=== PATIENT | male | born 1980 | race Caucasian/White ===

== ENCOUNTER 2018-01-02 14:31 | Emergency (ER) | payer OTHER | END 2018-01-02 17:58 | disposition home or self-care (01) | LOC: M ED 14:31 | DX: S76.212A Strain of adductor muscle, fascia and tendon of left thigh, initial encounter (principal); X50.0XXA Overexertion from strenuous movement or load, initial encounter; Y92.89 Other specified places as the place of occurrence of the external cause; E10.9 Type 1 diabetes mellitus without complications; G40.909 Epilepsy, unspecified, not intractable, without status epilepticus; Z79.899 Other long term (current) drug therapy; Z79.4 Long term (current) use of insulin | CPT/HCPCS: 76870 ==

== ENCOUNTER 2018-03-03 19:22 | Emergency (ER) | payer SELFPAY | END 2018-03-03 19:53 | disposition home or self-care (01) | LOC: M ED 19:22 | DX: Z76.0 Encounter for issue of repeat prescription (principal); G40.909 Epilepsy, unspecified, not intractable, without status epilepticus; E11.9 Type 2 diabetes mellitus without complications; K21.9 Gastro-esophageal reflux disease without esophagitis; Z79.899 Other long term (current) drug therapy; Z79.4 Long term (current) use of insulin | CPT/HCPCS: 99283 ==

== ENCOUNTER → 2018-05-16 | Outpatient (CLI) | payer OTHER | LOC: M LRY 15:47 | DX: S89.82XA Other specified injuries of left lower leg, initial encounter (principal); M17.12 Unilateral primary osteoarthritis, left knee; X58.XXXA Exposure to other specified factors, initial encounter; Y92.9 Unspecified place or not applicable | CPT/HCPCS: 73564 ==

== ENCOUNTER → 2019-08-02 | Outpatient (REF) | payer BC ==
[~2019-08-02] MED LIST: AMIT25TA; AMIT25TA PO; IBUP-1114 PO; IBUP80TA PO; INSUN SC; INSUR SC; KEPP1TAB2 PO; LEVE750T5 PO
[2019-08-02 12:08] LABS: BASO % 0.7 % (0.0-1.0); EOS # 0.2 10^3/uL (0.0-0.5); EOS % 4.1 % (0.0-3.0); HEMATOCRIT 45.9 % (42.0-52.0); HEMOGLOBIN 15.7 g/dl (13.5-17.5); LYMPH % 34.8 % (24.0-44.0); MEAN CORPUSCULAR HEMOGLOBIN 31.2 pg (27.0-33.0); MEAN CORPUSCULAR HGB CONC 34.2 g/dl (32.0-36.5); MEAN CORPUSCULAR VOLUME 91.1 fl (80.0-96.0); MONO # 0.4 10^3/uL (0.0-0.8); MONO % 7.5 % (0.0-5.0); NEUTROPHILS % 52.7 % (36.0-66.0); PLATELET COUNT, AUTOMATED 268 10^3/uL (150-450); RED BLOOD COUNT 5.04 10^6/uL (4.30-6.10); WHITE BLOOD COUNT 5.6 10^3/uL (4.0-10.0)
[2019-08-02 12:26] LABS: ALBUMIN 3.8 GM/DL (3.2-5.2); ALT/SGPT 25 U/L (12-78); BILIRUBIN,TOTAL 0.4 MG/DL (0.2-1.0); BLOOD UREA NITROGEN 26 MG/DL (7-18); CALCIUM LEVEL 9.1 MG/DL (8.5-10.1); CARBON DIOXIDE LEVEL 32 MEQ/L (21-32); CHLORIDE LEVEL 103 MEQ/L (98-107); CHOLESTEROL LEVEL 226 MG/DL (<200); CREATININE FOR GFR 1.13 MG/DL (0.70-1.30); FREE T4 0.93 NG/DL (0.76-1.46); GLOMERULAR FILTRATION RATE > 60.0 (>60); GLUCOSE, FASTING 210 MG/DL (70-100); HDL CHOLESTEROL 79 MG/DL (>40); LDL CHOLESTEROL 128 MG/DL (<100); NON-HDL-C 147 MG/DL; POTASSIUM SERUM 4.5 MEQ/L (3.5-5.1); SODIUM LEVEL 140 MEQ/L (136-145); TOTAL 25(OH) VITAMIN D 21.3 NG/ML (30.0-100.0); TOTAL PROTEIN 6.8 GM/DL (6.4-8.2); TRIGLYCERIDES LEVEL 95 MG/DL (<150)
[2019-08-02 12:30] LABS: HEMOGLOBIN A1c 11.3 %
[2019-08-04 00:10] LABS: Lyme Disease IgG/IgM Antibodie <0.91 ISR (0.00-0.90); Lyme Disease IgM Ab Quantitati <0.80 index (0.00-0.79)
== END ==
LOC: M LAB REF 11:30
PROVIDERS: ATTEND Family Medicine
DX: Z13.228 Encounter for screening for other metabolic disorders (principal); E10.9 Type 1 diabetes mellitus without complications

== ENCOUNTER 2019-11-28 12:36 | Emergency (ER) | payer BC, OTHER, SELFPAY ==
[~2019-11-28] VITALS: Ht 177.8 cm; Wt 86.6 kg
[2019-11-28 13:08] LABS: BASO % 0.4 % (0.0-1.0); EOS # 0.1 10^3/uL (0.0-0.5); EOS % 0.7 % (0.0-3.0); HEMATOCRIT 44.9 % (42.0-52.0); HEMOGLOBIN 15.9 g/dl (13.5-17.5); LYMPH # 1.2 10^3/uL (1.5-5.0); LYMPH % 13.6 % (24.0-44.0); MEAN CORPUSCULAR HEMOGLOBIN 31.2 pg (27.0-33.0); MEAN CORPUSCULAR HGB CONC 35.4 g/dl (32.0-36.5); MEAN CORPUSCULAR VOLUME 88.2 fl (80.0-96.0); MONO # 0.5 10^3/uL (0.0-0.8); NEUTROPHILS # 7.2 10^3/uL (1.5-8.5); NEUTROPHILS % 79.9 % (36.0-66.0); PLATELET COUNT, AUTOMATED 276 10^3/uL (150-450); RED BLOOD COUNT 5.09 10^6/uL (4.30-6.10)
[2019-11-28] MEDS ORDERED: KETOROLAC 30 MG/ML VIAL (J1885) IV ONE (13:45)
[2019-11-28 13:46] LABS: BLOOD UREA NITROGEN 33 MG/DL (7-18); CALCIUM LEVEL 8.8 MG/DL (8.5-10.1); CARBON DIOXIDE LEVEL 22 MEQ/L (21-32); CHLORIDE LEVEL 101 MEQ/L (98-107); CK-MB VALUE MASS 2.8 NG/ML (<3.6); CPK CREATINE PHOSPHOKINASE 101 U/L (39-308); CREATININE FOR GFR 1.38 MG/DL (0.70-1.30); GLOMERULAR FILTRATION RATE > 60.0 (>60); GLUCOSE, FASTING 411 MG/DL (70-100); MB/CK RELATIVE INDEX 2.77 (< OR =4); POTASSIUM SERUM 4.6 MEQ/L (3.5-5.1); SODIUM LEVEL 133 MEQ/L (136-145); TROPONIN I < 0.02 NG/ML (< 0.10)
[2019-11-28] MEDS ORDERED: INSULANT SC (13:53)
--- NOTE | 2019-11-28 13:56 | REP ---
Clinical: Chest pain . Comparison: None . Findings: The mediastinum and cardiac silhouette are stable and within normal limits for portable technique. The lung gerber are clear without acute consolidation, effusion, or pneumothorax. Skeletal structures are intact. Impression: No acute cardiopulmonary process appreciated. Electronically Signed by Gonzalez Burnette MD 11/28/2019 01:49 P
[2019-11-28] MEDS ORDERED: HumaLOG INSULIN (NovoLOG) PER UNIT SC STA (14:25)
[2019-11-28 14:26] LABS: INFLUENZA A AMPLIFICATION NEGATIVE (NEGATIVE); INFLUENZA B AMPLIFICATION NEGATIVE (NEGATIVE)
[2019-11-28] MEDS ORDERED: ISOVUE-370 76% 100ML VIAL (Q9967) As Ordered ONE (14:36)
[2019-11-28 14:58] LABS: ALBUMIN 4.1 GM/DL (3.2-5.2); ALT/SGPT 28 U/L (12-78); BILIRUBIN,DIRECT 0.2 MG/DL (0.0-0.2); BILIRUBIN,TOTAL 0.8 MG/DL (0.2-1.0); LIPASE 69 U/L (73-393); TOTAL PROTEIN 6.7 GM/DL (6.4-8.2)
[2019-11-28] MEDS ORDERED: NS 1,000 ML IV ONE (15:00)
--- NOTE | 2019-11-28 15:13 | REP ---
Clinical: Chest pain . Technique: Axial contrast enhanced images from the thoracic inlet to the upper abdomen using 100 ml Isovue 370 intravenous contrast material with multiplanar re-formations. Findings: Satisfactory enhancement of the pulmonary vasculature is achieved and no filling defects are identified to suggest pulmonary embolus. Further evaluation of the mediastinum demonstrates normal thoracic aorta, heart and pericardium. The bilateral lung gerber are well aerated and clear without consolidation pleural effusion or pneumothorax. Tracheobronchial tree is patent. No nodule or mass lesion is identified. No adenopathy noted. Surrounding musculoskeletal structures intact a benign hemangioma identified in the lower thoracic vertebral bodies. Impression: No evidence for pulmonary embolus. No acute mediastinal or pleural parenchymal process. Electronically Signed by Gonzalez Burnette MD 11/28/2019 03:03 P
--- NOTE | 2019-11-28 15:16 | REP ---
Clinical: Right upper quadrant pain. Technique: Axial contrast enhanced images from the lung bases to the pubic symphysis with coronal and sagittal re-formations using 100 ml Isovue 370 intravenous contrast material. Comparison: None. Findings: Liver demonstrates multiple cavernous hemangiomas including a 7.5 cm hemangioma extending from the inferior aspect of the right hepatic lobe. Spleen, pancreas, gallbladder, bilateral adrenal glands and kidneys are normal. The enteric system is without obstruction or acute inflammatory process. Pelvis demonstrates distended bladder and age appropriate prostate/seminal vesicles. No ascites. No free air. No adenopathy. Lung bases are clear. Osseous structures are intact. Impression: 1. Multiple cavernous hemangiomas including 7.5 cm hemangioma extending from the inferior aspect of the right hepatic lobe. 2. No further acute abdominopelvic pathology appreciated. Electronically Signed by Gonzalez Burnette MD 11/28/2019 03:07 P
[2019-11-28] MEDS ORDERED: METOCLOPRAMIDE INJ 10MG/2ML VIAL (J2765) IV ONE (16:15)
[2019-11-28 17:17] LABS: CK-MB VALUE MASS 2.5 NG/ML (<3.6); CPK CREATINE PHOSPHOKINASE 81 U/L (39-308); MB/CK RELATIVE INDEX 3.09 (< OR =4); TROPONIN I < 0.02 NG/ML (< 0.10)
[2019-11-28] MEDS ORDERED: REGL5TAB2 PO (18:01)
[2019-11-28] MEDS ORDERED: KETO10TAB PO (18:01)
[2019-11-28] MEDS ORDERED: PERC5TAB12 PO (18:09)
[2019-11-28 18:21] VITALS: BP 116/59
--- NOTE | 2019-11-28 20:29 | ECGEPIP ---
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
--- NOTE | 2019-11-28 20:33 | ECGEPIP ---
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
--- NOTE | 2019-11-29 11:19 | ED PDOC ---
Post-Departure Follow-Up radiology report faxed to Loree Wilson MD Nov 29, 2019 11:19
== END 2019-11-28 18:28 | disposition home or self-care (01) ==
LOC: EDBD 12:36 → M ED 12:36
DX: R07.89 Other chest pain (principal); R06.02 Shortness of breath; E10.42 Type 1 diabetes mellitus with diabetic polyneuropathy; Z79.899 Other long term (current) drug therapy; Z79.4 Long term (current) use of insulin
CPT/HCPCS: 71045; 71275; 74177; 80048; 80076; 80180; 82550; 82553; 83690; 84484; 85025; 87502; 93005; 93041; 94760; 96374; 96375; 99285; J1885; J2765; Q9967

== ENCOUNTER 2019-12-11 18:25 | Emergency (ER) | payer BC ==
[~2019-12-11 18:25] MED LIST changes: +INSULANT SC; +KETO10TAB PO; +PERC5TAB12 PO; +REGL5TAB2 PO
[2019-12-11] MEDS ORDERED: TOUJ1.2I SC (19:06)
--- NOTE | 2019-12-11 19:12 | REP ---
Portable chest x-ray: Single view. History: Chest pain. Comparison chest x-ray November 28, 2019. Findings: The lungs are symmetrically aerated and no infiltrate is seen. Pleural angles are sharp. Cardiomediastinal silhouette is unremarkable. No bony abnormalities appreciated. Impression: No active disease. Electronically Signed by Ernst Amaya MD 12/11/2019 07:04 P
[2019-12-11 19:30] LABS: HEMATOCRIT 43.3 % (42.0-52.0); HEMOGLOBIN 14.8 g/dl (13.5-17.5); MEAN CORPUSCULAR HEMOGLOBIN 30.4 pg (27.0-33.0); MEAN CORPUSCULAR HGB CONC 34.2 g/dl (32.0-36.5); MEAN CORPUSCULAR VOLUME 88.9 fl (80.0-96.0); PLATELET COUNT, AUTOMATED 216 10^3/uL (150-450); RED BLOOD COUNT 4.87 10^6/uL (4.30-6.10); WHITE BLOOD COUNT 6.5 10^3/uL (4.0-10.0)
[2019-12-11] MEDS ORDERED: METOCLOPRAMIDE INJ 10MG/2ML VIAL (J2765) IV ONE (19:30)
[2019-12-11] MEDS ORDERED: NS 1,000 ML IV ONE (19:30)
[2019-12-11 20:01] LABS: BASOPHILS 1 % (0-1); LYMPHOCYTES 6 % (16-44); MONOCYTES 7 % (0-5); NEUTROPHILS 66 % (28-66)
[2019-12-11 20:02] LABS: PLATELET ESTIMATE NORMAL (NORMAL)
[2019-12-11 20:09] LABS: ALBUMIN 3.2 GM/DL (3.2-5.2); ALT/SGPT 27 U/L (12-78); AMYLASE 32 U/L (25-115); BILIRUBIN,DIRECT 0.2 MG/DL (0.0-0.2); BILIRUBIN,TOTAL 0.7 MG/DL (0.2-1.0); BLOOD UREA NITROGEN 26 MG/DL (7-18); CALCIUM LEVEL 8.4 MG/DL (8.5-10.1); CARBON DIOXIDE LEVEL 24 MEQ/L (21-32); CHLORIDE LEVEL 104 MEQ/L (98-107); CK-MB VALUE MASS 1.2 NG/ML (<3.6); CPK CREATINE PHOSPHOKINASE 73 U/L (39-308); FREE T4 1.07 NG/DL (0.76-1.46); GLOMERULAR FILTRATION RATE > 60.0 (>60); GLUCOSE, FASTING 218 MG/DL (70-100); LIPASE 58 U/L (73-393); MB/CK RELATIVE INDEX 1.64 (< OR =4); POTASSIUM SERUM 3.6 MEQ/L (3.5-5.1); SODIUM LEVEL 138 MEQ/L (136-145); THYROID STIMULATING HORMONE 0.381 uIU/ML (0.358-3.740); TOTAL PROTEIN 5.9 GM/DL (6.4-8.2); TROPONIN I < 0.02 NG/ML (< 0.10)
[2019-12-11] MEDS ORDERED: MORPHINE 4 MG/ML 1ML VIAL/SYRINGE (J2270) IV ONE (20:15)
--- NOTE | 2019-12-11 21:23 | ECGEPIP ---
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
--- NOTE | 2019-12-11 22:05 | REPVR ---
PROCEDURE INFORMATION: Exam: US Abdomen Limited, Right Upper Quadrant Exam date and time: 12/11/2019 9:37 PM Age: 39 years old Clinical indication: Abdominal tenderness and vomiting; Additional info: Biliary/gb eval TECHNIQUE: Imaging protocol: Real-time ultrasound of the abdomen with image documentation. Examination was focused on the right upper quadrant. COMPARISON: CT ABD/PEL W/IV CONTRAST ONLY 11/28/2019 2:43 PM FINDINGS: Liver: Normal. No masses. Gallbladder: Normal. No gallstones. There is no gallbladder wall thickening. Common bile duct: The common bile duct measures 4.1 mm. No mass or choledocholithiasis. Pancreas: Pancreatic tail not visualized due to overlying bowel gas. Pancreas otherwise unremarkable. Right kidney: Right kidney measures 10.9 x 5.3 x 5.1 cm. IMPRESSION: No acute findings. Electronically signed by: Radames Moreira On 12/11/2019 22:04:35 PM
[2019-12-11] MEDS ORDERED: REGL10TA6 PO (22:42)
[2019-12-11 22:48] VITALS: BP 125/70
== END 2019-12-11 23:08 | disposition home or self-care (01) ==
LOC: M ED 18:25
DX: K52.9 Noninfective gastroenteritis and colitis, unspecified (principal); E11.9 Type 2 diabetes mellitus without complications; G62.9 Polyneuropathy, unspecified; G40.909 Epilepsy, unspecified, not intractable, without status epilepticus; Z79.899 Other long term (current) drug therapy; Z79.4 Long term (current) use of insulin
CPT/HCPCS: 71045; 76705; 80048; 80076; 82010; 82150; 82550; 82553; 83690; 84439; 84443; 84484; 85025; 93005; 93041; 94760; 96361; 96374; 96375; 99285; J2270; J2765

== ENCOUNTER → 2020-02-08 | Outpatient (CLI) | payer BC ==
[~2020-02-08] MED LIST changes: +REGL10TA6 PO; +TOUJ1.2I SC
[2020-02-08 18:21] LABS: BASO # 0.1 10^3/uL (0.0-0.2); BASO % 0.7 % (0.0-1.0); EOS # 0.1 10^3/uL (0.0-0.5); HEMATOCRIT 40.3 % (42.0-52.0); HEMOGLOBIN 14.1 g/dl (13.5-17.5); LYMPH # 1.6 10^3/uL (1.5-5.0); LYMPH % 22.4 % (24.0-44.0); MEAN CORPUSCULAR HEMOGLOBIN 31.6 pg (27.0-33.0); MEAN CORPUSCULAR VOLUME 90.4 fl (80.0-96.0); MONO # 0.7 10^3/uL (0.0-0.8); NEUTROPHILS # 4.6 10^3/uL (1.5-8.5); NEUTROPHILS % 64.6 % (36.0-66.0); PLATELET COUNT, AUTOMATED 268 10^3/uL (150-450); RED BLOOD COUNT 4.46 10^6/uL (4.30-6.10); WHITE BLOOD COUNT 7.1 10^3/uL (4.0-10.0)
[2020-02-08 18:33] LABS: ALBUMIN 3.7 GM/DL (3.2-5.2); ALT/SGPT 44 U/L (12-78); BILIRUBIN,TOTAL 0.5 MG/DL (0.2-1.0); BLOOD UREA NITROGEN 26 MG/DL (7-18); CALCIUM LEVEL 8.7 MG/DL (8.5-10.1); CARBON DIOXIDE LEVEL 26 MEQ/L (21-32); CHLORIDE LEVEL 104 MEQ/L (98-107); CHOLESTEROL LEVEL 188 MG/DL (<200); CREATININE FOR GFR 1.16 MG/DL (0.70-1.30); GLOMERULAR FILTRATION RATE > 60.0 (>60); GLUCOSE, FASTING 217 MG/DL (70-100); HDL CHOLESTEROL 74 MG/DL (>40); LDL CHOLESTEROL 99 MG/DL (<100); NON-HDL-C 114 MG/DL; SODIUM LEVEL 138 MEQ/L (136-145); THYROID STIMULATING HORMONE 0.615 uIU/ML (0.358-3.740); TOTAL PROTEIN 6.6 GM/DL (6.4-8.2); TRIGLYCERIDES LEVEL 74 MG/DL (<150)
[2020-02-08 18:39] LABS: HEMOGLOBIN A1c 10.6 %
== END ==
LOC: M LRY 15:13
PROVIDERS: ATTEND Family Medicine
DX: E10.9 Type 1 diabetes mellitus without complications (principal)

== ENCOUNTER → 2020-09-17 | Outpatient (CLI) | payer OTHER, SELFPAY ==
[~2020-09-17] MED LIST changes: -AMIT25TA; -AMIT25TA PO; +AMIT25TA17; +AMIT25TA17 PO
== END ==
LOC: M LABSMTC 13:10
PROVIDERS: ATTEND Family Medicine
DX: Z11.59 Encounter for screening for other viral diseases (principal)

== ENCOUNTER 2020-09-24 21:20 | Emergency (ER) | payer SELFPAY ==
[~2020-09-24] VITALS: Ht 180.3 cm; Wt 93.6 kg
[~2020-09-24 21:20] MED LIST changes: +AMIT25TA; +AMIT25TA PO; -AMIT25TA17; -AMIT25TA17 PO
[2020-09-24] MEDS ORDERED: NS 1,000 ML IV ONE (22:00)
[2020-09-24] MEDS: GASTROGRAFIN SOLUTION 30ML PO SCH ×2 (22:38→23:30)
[2020-09-24 22:41] LABS: BASO # 0.1 10^3/uL (0.0-0.2); BASO % 0.9 % (0.0-1.0); EOS # 0.3 10^3/uL (0.0-0.5); EOS % 3.7 % (0.0-3.0); HEMATOCRIT 41.4 % (42.0-52.0); HEMOGLOBIN 14.2 g/dl (13.5-17.5); LYMPH # 2.6 10^3/uL (1.5-5.0); LYMPH % 33.2 % (24.0-44.0); MEAN CORPUSCULAR HEMOGLOBIN 30.9 pg (27.0-33.0); MEAN CORPUSCULAR HGB CONC 34.3 g/dl (32.0-36.5); MONO # 0.6 10^3/uL (0.0-0.8); MONO % 8.1 % (0.0-5.0); NEUTROPHILS # 4.2 10^3/uL (1.5-8.5); NEUTROPHILS % 53.8 % (36.0-66.0); PLATELET COUNT, AUTOMATED 268 10^3/uL (150-450); WHITE BLOOD COUNT 7.8 10^3/uL (4.0-10.0)
[2020-09-24 22:54] LABS: INR 0.91; PROTHROMBIN TIME 12.4 SECONDS (12.5-14.3)
[2020-09-24 23:14] LABS: ALBUMIN 3.8 GM/DL (3.2-5.2); ALT/SGPT 36 U/L (12-78); BILIRUBIN,DIRECT 0.1 MG/DL (0.0-0.2); BILIRUBIN,TOTAL 0.5 MG/DL (0.2-1.0); BLOOD UREA NITROGEN 23 MG/DL (7-18); CALCIUM LEVEL 9.2 MG/DL (8.5-10.1); CARBON DIOXIDE LEVEL 29 MEQ/L (21-32); CHLORIDE LEVEL 105 MEQ/L (98-107); CREATININE FOR GFR 1.37 MG/DL (0.70-1.30); GLOMERULAR FILTRATION RATE > 60.0 (>60); GLUCOSE, FASTING 110 MG/DL (70-100); LIPASE 112 U/L (73-393); POTASSIUM SERUM 4.5 MEQ/L (3.5-5.1); SODIUM LEVEL 139 MEQ/L (136-145); TOTAL PROTEIN 6.9 GM/DL (6.4-8.2)
--- NOTE | 2020-09-25 00:16 | REPVR ---
PROCEDURE INFORMATION: Exam: CT Abdomen And Pelvis With Contrast Exam date and time: 09/24/2020 9:52 PM Age: 39 years old Clinical indication: Abdominal pain; Generalized; Additional info: Abd pain with lower gi bleeding TECHNIQUE: Imaging protocol: Computed tomography of the abdomen and pelvis with intravenous contrast. Radiation optimization: All CT scans at this facility use at least one of these dose optimization techniques: automated exposure control; mA and/or kV adjustment per patient size (includes targeted exams where dose is matched to clinical indication); or iterative reconstruction. Contrast material: ISO; Contrast volume: 100 ml; Contrast route: INTRAVENOUS (IV); COMPARISON: CT ABD/PEL W/IV CONTRAST ONLY 11/28/2019 2:43 PM FINDINGS: Lungs: No suspicious mass or airspace process in the visualized lung bases. Liver: Anterior hepatic hemangioma measuring 14 mm on image 23, unchanged. Right lobe hepatic dome hemangioma measuring 2.7 cm, unchanged. Two left lobe lesions consistent with hemangiomas also unchanged, and large inferior right hepatic hemangioma measuring 6 cm, unchanged. These demonstrate discontinuous peripheral enhancement and were evaluated on a prior CT from November 28, 2019. Gallbladder and bile ducts: Gallbladder is present and shows no evidence of gallstone. . Pancreas: Pancreas appears normal. No focal mass or peripancreatic inflammation. Pancreas appears normal. No focal mass or peripancreatic inflammation. Spleen: Spleen appears homogeneous without focal mass. Adrenal glands: Adrenal glands are normal in appearance. Kidneys and ureters: Kidneys appear normal, with no stone, solid mass or hydronephrosis. Stomach and bowel: No evidence of small bowel obstruction. Appendix: Appendix measures 6 mm in diameter. No periappendiceal stranding. Intraperitoneal space: No pneumoperitoneum. Vasculature: No aortic aneurysm. Main portal and splenic veins enhance normally. Lymph nodes: No enlarged lymph nodes. . Urinary bladder: Urinary bladder appears normal. Reproductive: No overt enlargement of the prostate gland. Bones/joints: Bony structures show no acute fracture or destructive process. Soft tissues: Unremarkable. IMPRESSION: 1. No acute or concerning focal abdominal or pelvic process and no explanation for clinical symptoms. 2. Benign hepatic hemangiomas. 3. No evidence of appendicitis Electronically signed by: Aldo Lcuia On 09/25/2020 00:16:09 AM
[2020-09-25 00:45] VITALS: BP 146/81
== END 2020-09-25 00:58 | disposition home or self-care (01) ==
LOC: M ED 21:20
DX: A08.4 Viral intestinal infection, unspecified (principal)
CPT/HCPCS: 74177; 80053; 83605; 83690; 85025; 85610; 93041; 96360; 99284; Q9963

== ENCOUNTER → 2020-11-11 | Outpatient (REF) | payer SELFPAY ==
[~2020-11-11] MED LIST changes: -AMIT25TA; -AMIT25TA PO; +AMIT25TA17; +AMIT25TA17 PO
[2020-11-11 18:29] LABS: BASO # 0.1 10^3/uL (0.0-0.2); BASO % 0.9 % (0.0-1.0); EOS # 0.2 10^3/uL (0.0-0.5); EOS % 2.7 % (0.0-3.0); HEMOGLOBIN 16.1 g/dl (13.5-17.5); LYMPH # 1.8 10^3/uL (1.5-5.0); LYMPH % 25.5 % (24.0-44.0); MEAN CORPUSCULAR HEMOGLOBIN 30.6 pg (27.0-33.0); MEAN CORPUSCULAR HGB CONC 33.5 g/dl (32.0-36.5); MEAN CORPUSCULAR VOLUME 91.1 fl (80.0-96.0); MONO # 0.6 10^3/uL (0.0-0.8); MONO % 8.4 % (0.0-5.0); NEUTROPHILS # 4.3 10^3/uL (1.5-8.5); NEUTROPHILS % 62.2 % (36.0-66.0); PLATELET COUNT, AUTOMATED 317 10^3/uL (150-450); RED BLOOD COUNT 5.27 10^6/uL (4.30-6.10); WHITE BLOOD COUNT 6.9 10^3/uL (4.0-10.0)
== END ==
LOC: M LAB REF 16:08
DX: R10.9 Unspecified abdominal pain (principal)

== ENCOUNTER → 2020-11-14 | Outpatient (CLI) | payer SELFPAY ==
--- NOTE | 2020-11-14 09:25 | REP ---
INDICATION: UNSPECIFIED ABDOMINAL PAIN TECHNIQUE: Real time B-mode ortez scale ultrasound examination using curved array transducer. FINDINGS: Liver measures 19 cm in craniocaudal length and includes 1.8 cm hyperechoic lesion in the medial left lobe, 2.7 x 1.6 x 2.2 cm solid hypoechoic lesion in the lateral left lobe, 2.9 x 3.4 x 3.0 cm hyperechoic lesion in the posterior right lobe, and a large complex hypoechoic lesion measuring 8.5 x 5.9 x 6.5 cm in the inferior right lobe which is consistent with giant hemangioma based on CT dated 09/24/2020.. Liver and pancreas are normal. Gallbladder is unremarkable and without gallstones, wall thickening, or pericholecystic fluid. No biliary ductal dilatation is appreciated and the common bile duct measures 4 mm diameter. The bilateral kidneys are normal in reniform shape without hydronephrosis or obvious abnormality. Right kidney measures 11.8 x 6.0 x 5.1 cm. Left kidney measures 12.3 x 5.4 x 5.3 cm. Abdominal aorta is normal and measures 1.9 cm maximal diameter. No obvious ascites. IMPRESSION: 1. Multiple liver lesions which are nonspecific but may represent hemangiomas and may warrant pre and post contrast CT of the abdomen along with delayed images for further investigation.. 2. Large 8.5 cm hypoechoic liver lesion in the right lobe consistent with joint hemangioma based on CT dated 09/24/2020. <Electronically signed by Gonzalez Burnette > 11/14/20 0921
== END ==
LOC: M RAD 08:12
DX: D37.6 Neoplasm of uncertain behavior of liver, gallbladder and bile ducts (principal)

== ENCOUNTER → 2020-12-02 | Outpatient (REF) | payer SELFPAY ==
[2020-12-02 18:27] LABS: ALBUMIN 4.2 GM/DL (3.2-5.2); ALT/SGPT 33 U/L (12-78); BILIRUBIN,TOTAL 0.4 MG/DL (0.2-1.0); BLOOD UREA NITROGEN 21 MG/DL (7-18); CALCIUM LEVEL 9.3 MG/DL (8.5-10.1); CARBON DIOXIDE LEVEL 29 MEQ/L (21-32); CHLORIDE LEVEL 103 MEQ/L (98-107); CREATININE FOR GFR 1.29 MG/DL (0.70-1.30); GLOMERULAR FILTRATION RATE > 60.0 (>60); GLUCOSE, FASTING 305 MG/DL (70-100); POTASSIUM SERUM 4.8 MEQ/L (3.5-5.1); SODIUM LEVEL 139 MEQ/L (136-145); THYROID STIMULATING HORMONE 0.944 uIU/ML (0.358-3.740); TOTAL PROTEIN 7.3 GM/DL (6.4-8.2)
== END ==
LOC: M LAB REF 16:34
PROVIDERS: ATTEND Pediatrics
DX: R63.5 Abnormal weight gain (principal)

== ENCOUNTER 2020-12-16 17:45 | Emergency (ER) | payer SELFPAY ==
[~2020-12-16] VITALS: Ht 177.8 cm; Wt 92.7 kg
[2020-12-16] MEDS ORDERED: INSURSD SC (17:58)
[2020-12-16] MEDS ORDERED: NOVOINJ13 SC (17:58)
[2020-12-16] MEDS ORDERED: COMBIVENT RESPIMAT 100-20MCG INHALER 4GM INH ONE (20:00)
[2020-12-16] MEDS ORDERED: NS 1,000 ML IV ONE (20:00)
[2020-12-16 20:48] LABS: BASO % 0.5 % (0.0-1.0); EOS % 0.3 % (0.0-3.0); HEMATOCRIT 49.9 % (42.0-52.0); HEMOGLOBIN 16.3 g/dl (13.5-17.5); LYMPH % 15.1 % (24.0-44.0); MEAN CORPUSCULAR HEMOGLOBIN 29.8 pg (27.0-33.0); MEAN CORPUSCULAR HGB CONC 32.7 g/dl (32.0-36.5); MEAN CORPUSCULAR VOLUME 91.2 fl (80.0-96.0); MONO # 0.9 10^3/uL (0.0-0.8); MONO % 13.8 % (2.0-8.0); NEUTROPHILS # 4.6 10^3/uL (1.5-8.5); NEUTROPHILS % 69.8 % (36.0-66.0); PLATELET COUNT, AUTOMATED 220 10^3/uL (150-450); RED BLOOD COUNT 5.47 10^6/uL (4.30-6.10); WHITE BLOOD COUNT 6.5 10^3/uL (4.0-10.0)
[2020-12-16 21:13] LABS: ALBUMIN 4.1 GM/DL (3.2-5.2); ALT/SGPT 35 U/L (12-78); BILIRUBIN,TOTAL 0.6 MG/DL (0.2-1.0); BLOOD UREA NITROGEN 24 MG/DL (7-18); C REACTIVE PROTEIN QUANTITATIV 1.44 MG/DL (0.00-0.30); CARBON DIOXIDE LEVEL 23 MEQ/L (21-32); CHLORIDE LEVEL 100 MEQ/L (98-107); CK-MB VALUE MASS < 1.0 NG/ML (<3.6); CPK CREATINE PHOSPHOKINASE 74 U/L (39-308); CREATININE FOR GFR 0.89 MG/DL (0.70-1.30); FERRITIN 348 NG/ML (26-388); GLOMERULAR FILTRATION RATE > 60.0 (>60); GLUCOSE, FASTING 379 MG/DL (70-100); LDH LACTATE DEHYDROGENASE 256 U/L (87-241); MB/CK RELATIVE INDEX 1.35 (< OR =4); POTASSIUM SERUM 4.7 MEQ/L (3.5-5.1); SODIUM LEVEL 134 MEQ/L (136-145); TOTAL PROTEIN 7.8 GM/DL (6.4-8.2); TROPONIN I < 0.02 NG/ML (< 0.10)
--- NOTE | 2020-12-16 21:48 | REPVR ---
PROCEDURE INFORMATION: Exam: XR Chest Exam date and time: 12/16/2020 9:10 PM Age: 40 years old Clinical indication: Screening exam; Other screening; Additional info: Coronavirus workup TECHNIQUE: Imaging protocol: XR of the chest Views: 1 view. COMPARISON: PA PORTABLE CHEST X-RAY 12/11/2019 6:56 PM FINDINGS: Tubes, catheters and devices: Leads overlie the chest. Lungs: There is no visualized lung consolidation. The lungs are clear. Pleural spaces: No pneumothorax. No pleural effusions. Heart/Mediastinum: No cardiomegaly. Bones/joints: Mild convexity of the thoracic spine to the right. No acute osseous abnormality. IMPRESSION: No radiographic evidence of acute cardiopulmonary disease. There is stable aeration of the lungs compared to the prior study. Electronically signed by: Prasad Muse On 12/16/2020 21:48:52 PM
[2020-12-16 22:00] VITALS: BP 142/74
--- NOTE | 2020-12-17 07:15 | ECGEPIP ---
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
== END 2020-12-16 22:57 | disposition home or self-care (01) ==
LOC: M ED 17:45
DX: U07.1 COVID-19 (principal); E10.9 Type 1 diabetes mellitus without complications; K76.9 Liver disease, unspecified; Z79.899 Other long term (current) drug therapy; Z79.4 Long term (current) use of insulin

== ENCOUNTER 2022-11-11 14:57 | Emergency (ER) | payer OTHER, SELFPAY ==
[~2022-11-11] VITALS: Ht 180.3 cm; Wt 93.2 kg
[~2022-11-11 14:57] MED LIST changes: +INSURSD SC; +NOVOINJ13 SC
[2022-11-11 15:20] VITALS: BP 146/86
[2022-11-11] MEDS ORDERED: IBUPROFEN 600MG TAB PO ONE (16:05)
== END 2022-11-11 16:35 | disposition home or self-care (01) ==
LOC: M ED 14:57
DX: S43.492A Other sprain of left shoulder joint, initial encounter (principal); S13.4XXA Sprain of ligaments of cervical spine, initial encounter; V44.5XXA Car driver injured in collision with heavy transport vehicle or bus in traffic accident, initial encounter; E10.9 Type 1 diabetes mellitus without complications; Z79.4 Long term (current) use of insulin; Z79.899 Other long term (current) drug therapy

== ENCOUNTER → 2023-01-12 | Outpatient (REF) | payer OTHER ==
[2023-01-12 18:38] LABS: BASO # 0.1 10^3/uL (0.0-0.2); EOS # 0.4 10^3/uL (0.0-0.5); EOS % 6.1 % (0.0-3.0); HEMATOCRIT 44.2 % (42.0-52.0); HEMOGLOBIN 14.3 g/dl (13.5-17.5); LYMPH # 1.6 10^3/uL (1.5-5.0); LYMPH % 27.8 % (24.0-44.0); MEAN CORPUSCULAR HEMOGLOBIN 30.3 pg (27.0-33.0); MEAN CORPUSCULAR HGB CONC 32.4 g/dl (32.0-36.5); MEAN CORPUSCULAR VOLUME 93.6 fl (80.0-96.0); MONO # 0.5 10^3/uL (0.0-0.8); MONO % 8.2 % (2.0-8.0); NEUTROPHILS # 3.3 10^3/uL (1.5-8.5); NEUTROPHILS % 56.6 % (36.0-66.0); PLATELET COUNT, AUTOMATED 264 10^3/uL (150-450); RED BLOOD COUNT 4.72 10^6/uL (4.30-6.10); WHITE BLOOD COUNT 5.9 10^3/uL (4.0-10.0)
[2023-01-12 19:18] LABS: ALBUMIN 3.9 G/DL (3.2-5.2); ALKALINE PHOSPHATASE 80 U/L (46-116); ALT/SGPT 23 U/L (7.0-40); AST/SGOT 21 U/L (<34); BILIRUBIN,TOTAL 0.5 MG/DL (0.3-1.2); BLOOD UREA NITROGEN 19 MG/DL (9-23); CALCIUM LEVEL 9.3 MG/DL (8.5-10.1); CARBON DIOXIDE LEVEL 30 MMOL/L (20-31); CHLORIDE LEVEL 108 MMOL/L (98-107); CHOLESTEROL LEVEL 215 MG/DL (<200); CHOLESTEROL RISK RATIO 3.08 (<5); CREATININE FOR GFR 0.95 MG/DL (0.70-1.30); GLOMERULAR FILTRATION RATE > 60.0 (>60); GLUCOSE, FASTING 90 MG/DL (60-100); HDL CHOLESTEROL 69.6 MG/DL (>40); LDL CHOLESTEROL 134.4 MG/DL (<100); NON-HDL-C 145.4 MG/DL; POTASSIUM SERUM 4.4 MMOL/L (3.5-5.1); SODIUM LEVEL 139 MMOL/L (136-145); THYROID STIMULATING HORMONE 0.932 uIU/ML (0.55-4.78); TOTAL 25(OH) VITAMIN D 16.1 NG/ML (20.0-100.0); TOTAL PROTEIN 6.6 G/DL (5.7-8.2); TRIGLYCERIDES LEVEL 55 MG/DL (<150)
[2023-01-12 19:33] LABS: HEMOGLOBIN A1c 8.1 % (4.0-6.0)
== END ==
LOC: M LAB REF 16:27
PROVIDERS: ATTEND Nurse Practitioner Family
DX: Z13.228 Encounter for screening for other metabolic disorders (principal)

== ENCOUNTER → 2023-09-28 | Outpatient (REF) | payer OTHER ==
[~2023-09-28] MED LIST changes: -AMIT25TA17; -AMIT25TA17 PO; +AMIT25TA19; +AMIT25TA19 PO; +INSU100V19 SC; -INSURSD SC
== END ==
LOC: M LAB REF 11:07
PROVIDERS: ATTEND Nurse Practitioner Family
DX: Z79.899 Other long term (current) drug therapy (principal)

== ENCOUNTER → 2024-01-31 | Outpatient (REF) | payer OTHER ==
[~2024-01-31] MED LIST changes: +AMIT50TA PO; +FAMO20TA5 PO; +INSUHUMDS SC; +PANT20TA6 PO; +TOPI-21 PO; +TOPI100T9 PO; +UBRO100T PO; +VITA200032 PO
[2024-01-31 14:10] LABS: BASO # 0.1 10^3/uL (0.0-0.2); EOS # 0.2 10^3/uL (0.0-0.5); HEMATOCRIT 46.2 % (42.0-52.0); HEMOGLOBIN 15.2 g/dl (13.5-17.5); LYMPH # 1.6 10^3/uL (1.5-5.0); LYMPH % 28.2 % (24.0-44.0); MEAN CORPUSCULAR HGB CONC 32.9 g/dl (32.0-36.5); MEAN CORPUSCULAR VOLUME 94.1 fl (80.0-96.0); MONO # 0.5 10^3/uL (0.0-0.8); MONO % 8.8 % (2.0-8.0); NEUTROPHILS # 3.4 10^3/uL (1.5-8.5); NEUTROPHILS % 57.8 % (36.0-66.0); PLATELET COUNT, AUTOMATED 284 10^3/uL (150-450); RED BLOOD COUNT 4.91 10^6/uL (4.30-6.10); WHITE BLOOD COUNT 5.8 10^3/uL (4.0-10.0)
[2024-01-31 14:36] LABS: ALBUMIN 4.2 G/DL (3.2-5.2); ALKALINE PHOSPHATASE 72 U/L (46-116); ALT/SGPT 28 U/L (7.0-40); AST/SGOT 11 U/L (<34); BILIRUBIN,TOTAL 0.6 MG/DL (0.3-1.2); BLOOD UREA NITROGEN 30 MG/DL (9-23); CALCIUM LEVEL 9.8 MG/DL (8.5-10.1); CARBON DIOXIDE LEVEL 30 MMOL/L (20-31); CHLORIDE LEVEL 103 MMOL/L (98-107); CHOLESTEROL LEVEL 211 MG/DL (<200); CHOLESTEROL RISK RATIO 3.43 (<5); CREATININE FOR GFR 1.02 MG/DL (0.70-1.30); GLOMERULAR FILTRATION RATE > 60.0 (>60); GLUCOSE, FASTING 175 MG/DL (60-100); HDL CHOLESTEROL 61.4 MG/DL (>40); LDL CHOLESTEROL 138.4 MG/DL (<100); MAGNESIUM LEVEL 2.1 MG/DL (1.8-2.4); NON-HDL-C 149.6 MG/DL; SODIUM LEVEL 139 MMOL/L (136-145); TOTAL PROTEIN 7.1 G/DL (5.7-8.2); TRIGLYCERIDES LEVEL 56 MG/DL (<150)
[2024-01-31 14:39] LABS: THYROID STIMULATING HORMONE 0.758 uIU/ML (0.55-4.78); TOTAL 25(OH) VITAMIN D 26.6 NG/ML (20.0-100.0)
[2024-01-31 15:20] LABS: HEMOGLOBIN A1c 6.4 % (4.0-6.0)
== END ==
LOC: M LAB REF 12:55
PROVIDERS: ATTEND Nurse Practitioner Family
DX: E10.8 Type 1 diabetes mellitus with unspecified complications (principal); E66.3 Overweight; E55.9 Vitamin D deficiency, unspecified

== ENCOUNTER 2024-02-02 07:17 | Day surgery (SDC) | payer OTHER ==
[~2024-02-02] VITALS: Ht 180.3 cm; Wt 94.9 kg
[~2024-02-02 07:17] MED LIST changes: +NS 1,000 ML IV ONE
[2024-02-02] MEDS: INSULIN LISPRO (NovoLOG) PER UNIT SC ONE (07:50)
[2024-02-02] MEDS ORDERED: fentaNYL 100 MCG/2 ML INJECTION As Ordered ONE (08:19)
[2024-02-02] MEDS ORDERED: LIDOCAINE 2% 100MG/5ML SDV (FOR ANES.) As Ordered ONE (08:19)
[2024-02-02] MEDS ORDERED: propofoL 200 MG/20 ML VIAL As Ordered ONE (08:19)
[2024-02-02 08:57] VITALS: TEMP 97.3
[2024-02-02 09:15] VITALS: BP 130/76; O2SAT 99
== END 2024-02-02 09:19 | disposition home or self-care (01) ==
LOC: M OPP 07:17
PROVIDERS: ATTEND Surgery
DX: K29.50 Unspecified chronic gastritis without bleeding (principal); K21.9 Gastro-esophageal reflux disease without esophagitis; E11.40 Type 2 diabetes mellitus with diabetic neuropathy, unspecified; R56.9 Unspecified convulsions; Z79.899 Other long term (current) drug therapy; Z87.891 Personal history of nicotine dependence; Z79.4 Long term (current) use of insulin
CPT/HCPCS: 43239; 88305; J1815; J3010

== ENCOUNTER → 2024-02-04 | Outpatient (CLI) | payer OTHER ==
[~2024-02-04] MED LIST changes: -NS 1,000 ML IV ONE
== END ==
LOC: M RAD 08:55
PROVIDERS: ATTEND Surgery
DX: K29.70 Gastritis, unspecified, without bleeding (principal); R10.11 Right upper quadrant pain; K76.89 Other specified diseases of liver; R14.0 Abdominal distension (gaseous); R16.0 Hepatomegaly, not elsewhere classified; K82.9 Disease of gallbladder, unspecified

== ENCOUNTER → 2024-02-29 | Outpatient (CLI) | payer OTHER | LOC: M RAD 11:34 | PROVIDERS: ATTEND Surgery | DX: K29.70 Gastritis, unspecified, without bleeding (principal); R10.11 Right upper quadrant pain | CPT/HCPCS: 78264; A9541 ==

== ENCOUNTER → 2024-07-11 | Outpatient (CLI) | payer OTHER ==
[2024-07-11 14:29] LABS: HEMOGLOBIN 15.6 g/dl (13.5-17.5); MEAN CORPUSCULAR HEMOGLOBIN 30.6 pg (27.0-33.0); MEAN CORPUSCULAR HGB CONC 33.9 g/dl (32.0-36.5); MEAN CORPUSCULAR VOLUME 90.4 fl (80.0-96.0); PLATELET COUNT, AUTOMATED 267 10^3/uL (150-450); RED BLOOD COUNT 5.09 10^6/uL (4.30-6.10); WHITE BLOOD COUNT 7.3 10^3/uL (4.0-10.0)
[2024-07-11 14:44] LABS: INR 0.99; PROTHROMBIN TIME 12.8 SECONDS (12.5-14.5)
[2024-07-11 14:52] LABS: ALBUMIN 4.2 G/DL (3.2-5.2); ALKALINE PHOSPHATASE 77 U/L (46-116); ALT/SGPT 18 U/L (7.0-40); AST/SGOT 9 U/L (<34); BILIRUBIN,TOTAL 0.6 MG/DL (0.3-1.2); BLOOD UREA NITROGEN 16 MG/DL (9-23); CALCIUM LEVEL 9.3 MG/DL (8.5-10.1); CARBON DIOXIDE LEVEL 28 MMOL/L (20-31); CHLORIDE LEVEL 105 MMOL/L (98-107); CREATININE FOR GFR 1.02 MG/DL (0.70-1.30); GLOMERULAR FILTRATION RATE > 60.0 (>60); GLUCOSE, FASTING 170 MG/DL (60-100); POTASSIUM SERUM 4.1 MMOL/L (3.5-5.1); SODIUM LEVEL 137 MMOL/L (136-145); TOTAL PROTEIN 7.1 G/DL (5.7-8.2)
== END ==
LOC: M LAB 14:06
PROVIDERS: ATTEND Family Medicine
DX: Z01.818 Encounter for other preprocedural examination (principal); F07.81 Postconcussional syndrome; Z87.820 Personal history of traumatic brain injury; G44.309 Post-traumatic headache, unspecified, not intractable; S49.91XS Unspecified injury of right shoulder and upper arm, sequela; Y93.9 Activity, unspecified; Y92.9 Unspecified place or not applicable

== ENCOUNTER → 2024-08-11 | Outpatient (REF) | payer OTHER ==
[2024-08-11 13:51] LABS: BASO # 0.1 10^3/uL (0.0-0.2); BASO % 0.8 % (0.0-1.0); EOS # 0.4 10^3/uL (0.0-0.5); EOS % 6.5 % (0.0-3.0); HEMATOCRIT 46.7 % (42.0-52.0); HEMOGLOBIN 15.5 g/dl (13.5-17.5); LYMPH # 1.8 10^3/uL (1.5-5.0); LYMPH % 28.1 % (24.0-44.0); MEAN CORPUSCULAR HEMOGLOBIN 30.8 pg (27.0-33.0); MEAN CORPUSCULAR HGB CONC 33.2 g/dl (32.0-36.5); MEAN CORPUSCULAR VOLUME 92.7 fl (80.0-96.0); MONO # 0.5 10^3/uL (0.0-0.8); MONO % 8.5 % (2.0-8.0); NEUTROPHILS # 3.5 10^3/uL (1.5-8.5); NEUTROPHILS % 55.9 % (36.0-66.0); PLATELET COUNT, AUTOMATED 292 10^3/uL (150-450); RED BLOOD COUNT 5.04 10^6/uL (4.30-6.10); WHITE BLOOD COUNT 6.3 10^3/uL (4.0-10.0)
[2024-08-11 13:59] LABS: ALBUMIN 4.1 G/DL (3.2-5.2); ALKALINE PHOSPHATASE 72 U/L (40-129); ALT/SGPT 21 U/L (7.0-40); AST/SGOT 11 U/L (<34); BILIRUBIN,TOTAL 0.6 MG/DL (0.3-1.2); BLOOD UREA NITROGEN 24 MG/DL (9-23); CALCIUM LEVEL 9.9 MG/DL (8.5-10.1); CARBON DIOXIDE LEVEL 28 MMOL/L (20-31); CHLORIDE LEVEL 106 MMOL/L (98-107); CHOLESTEROL LEVEL 250 MG/DL (<200); CHOLESTEROL RISK RATIO 3.91 (<5); CREATININE FOR GFR 1.03 MG/DL (0.70-1.30); GLOMERULAR FILTRATION RATE > 60.0 (>60); GLUCOSE, FASTING 176 MG/DL (60-100); HDL CHOLESTEROL 63.9 MG/DL (>40); LDL CHOLESTEROL 167.3 MG/DL (<100); NON-HDL-C 186.1 MG/DL; POTASSIUM SERUM 4.7 MMOL/L (3.5-5.1); SODIUM LEVEL 142 MMOL/L (136-145); THYROID STIMULATING HORMONE 1.216 uIU/ML (0.55-4.78); TOTAL PROTEIN 7.2 G/DL (5.7-8.2); TRIGLYCERIDES LEVEL 94 MG/DL (<150)
[2024-08-11 14:18] LABS: HEMOGLOBIN A1c 6.7 % (4.0-6.0)
== END ==
LOC: M LAB REF 13:07
PROVIDERS: ATTEND Nurse Practitioner Family
DX: E66.3 Overweight (principal)

== ENCOUNTER → 2024-08-16 | Outpatient (REF) | payer OTHER ==
[2024-08-16 13:56] LABS: CREATININE, URINE 136.4 MG/DL
[2024-08-16 13:58] LABS: MAU/CREAT RATIO 9.5 MCG/MG (0.0-30.0)
== END ==
LOC: M LAB REF 12:28
PROVIDERS: ATTEND Nurse Practitioner Family
DX: E10.8 Type 1 diabetes mellitus with unspecified complications (principal)

== ENCOUNTER 2024-11-09 03:55 | Emergency (ER) | payer OTHER ==
[~2024-11-09] VITALS: Ht 180.3 cm; Wt 96.5 kg
[2024-11-09 04:34] LABS: BASO % 0.2 % (0.0-1.0); HEMATOCRIT 43.9 % (42.0-52.0); LYMPH % 7.9 % (24.0-44.0); MEAN CORPUSCULAR HEMOGLOBIN 30.7 pg (27.0-33.0); MEAN CORPUSCULAR HGB CONC 34.2 g/dl (32.0-36.5); MEAN CORPUSCULAR VOLUME 89.8 fl (80.0-96.0); MONO # 0.9 10^3/uL (0.0-0.8); MONO % 7.6 % (2.0-8.0); NEUTROPHILS # 10.3 10^3/uL (1.5-8.5); NEUTROPHILS % 84.1 % (36.0-66.0); PLATELET COUNT, AUTOMATED 213 10^3/uL (150-450); RED BLOOD COUNT 4.89 10^6/uL (4.30-6.10); WHITE BLOOD COUNT 12.3 10^3/uL (4.0-10.0)
[2024-11-09 05:00] LABS: LIPASE 20 U/L (12-53)
[2024-11-09 05:02] LABS: ALBUMIN 3.9 G/DL (3.2-5.2); ALKALINE PHOSPHATASE 91 U/L (40-129); ALT/SGPT 25 U/L (7.0-40); AST/SGOT 23 U/L (<34); BILIRUBIN,DIRECT 0.3 MG/DL (<0.4); BLOOD UREA NITROGEN 18 MG/DL (9-23); CALCIUM LEVEL 9.2 MG/DL (8.5-10.1); CARBON DIOXIDE LEVEL 23 MMOL/L (20-31); CHLORIDE LEVEL 102 MMOL/L (98-107); CREATININE FOR GFR 1.06 MG/DL (0.70-1.30); GLOMERULAR FILTRATION RATE > 60.0 (>60); GLUCOSE, FASTING 246 MG/DL (60-100); POTASSIUM SERUM 4.5 MMOL/L (3.5-5.1); SODIUM LEVEL 139 MMOL/L (136-145); TOTAL PROTEIN 6.8 G/DL (5.7-8.2)
[2024-11-09 05:13] LABS: INR 0.95
[2024-11-09] MEDS: NS (Normal Saline) 0.9% 1,000 ML IV ONE (06:09)
[2024-11-09] MEDS: ONDANSETRON 4MG 2ML VIAL IV ONE (06:10)
[2024-11-09] MEDS: levETIRAcetam INJection 750 MG in D5W 100 ML IV ONE (06:10)
[2024-11-09] MEDS: KETOROLAC 30 MG/ML 1ML VIAL IV ONE ×2 (06:10→10:11)
[2024-11-09] MEDS ORDERED: ISOVUE-370 76% 100ML VIAL As Ordered ONE (06:12)
[2024-11-09] MEDS ORDERED: ONDA-282 PO (09:59)
[2024-11-09] MEDS ORDERED: AMOX875T2 PO (10:00)
[2024-11-09 10:31] VITALS: BP 114/56; TEMP 98.9; O2SAT 97
== END 2024-11-09 10:35 | disposition home or self-care (01) ==
LOC: M ED 03:55
DX: K52.9 Noninfective gastroenteritis and colitis, unspecified (principal); E10.9 Type 1 diabetes mellitus without complications; G40.909 Epilepsy, unspecified, not intractable, without status epilepticus; Z79.4 Long term (current) use of insulin; Z79.899 Other long term (current) drug therapy
CPT/HCPCS: 74177; 80048; 80076; 82270; 83605; 83690; 85025; 85610; 85730; 86850; 86900; 86901; 87040; 87507; 96365; 96375; 96376; 99284; J1885; J1953; J2405; Q9967

== ENCOUNTER 2024-11-10 16:07 | Emergency (ER) | payer OTHER ==
[~2024-11-10] VITALS: Ht 180.3 cm; Wt 94.0 kg
[~2024-11-10 16:07] MED LIST changes: +AMOX875T2 PO; +ONDA-282 PO
[2024-11-10 17:42] LABS: BASO % 0.3 % (0.0-1.0); EOS % 0.1 % (0.0-3.0); HEMATOCRIT 42.9 % (42.0-52.0); HEMOGLOBIN 14.4 g/dl (13.5-17.5); LYMPH # 0.5 10^3/uL (1.5-5.0); LYMPH % 5.7 % (24.0-44.0); MEAN CORPUSCULAR HEMOGLOBIN 30.9 pg (27.0-33.0); MEAN CORPUSCULAR HGB CONC 33.6 g/dl (32.0-36.5); MEAN CORPUSCULAR VOLUME 92.1 fl (80.0-96.0); MONO # 0.9 10^3/uL (0.0-0.8); NEUTROPHILS # 7.1 10^3/uL (1.5-8.5); NEUTROPHILS % 82.7 % (36.0-66.0); PLATELET COUNT, AUTOMATED 283 10^3/uL (150-450); RED BLOOD COUNT 4.66 10^6/uL (4.30-6.10); WHITE BLOOD COUNT 8.6 10^3/uL (4.0-10.0)
[2024-11-10 17:58] LABS: LIPASE 19 U/L (12-53)
[2024-11-10 18:00] LABS: ALBUMIN 3.7 G/DL (3.2-5.2); ALKALINE PHOSPHATASE 79 U/L (40-129); ALT/SGPT 27 U/L (7.0-40); AST/SGOT 20 U/L (<34); BILIRUBIN,DIRECT 0.2 MG/DL (<0.4); BILIRUBIN,TOTAL 0.6 MG/DL (0.3-1.2); BLOOD UREA NITROGEN 15 MG/DL (9-23); CALCIUM LEVEL 8.9 MG/DL (8.5-10.1); CARBON DIOXIDE LEVEL 27 MMOL/L (20-31); CHLORIDE LEVEL 103 MMOL/L (98-107); CREATININE FOR GFR 1.05 MG/DL (0.70-1.30); GLOMERULAR FILTRATION RATE > 60.0 (>60); GLUCOSE, FASTING 147 MG/DL (60-100); POTASSIUM SERUM 3.9 MMOL/L (3.5-5.1); SODIUM LEVEL 139 MMOL/L (136-145); TOTAL PROTEIN 6.8 G/DL (5.7-8.2)
[2024-11-10 20:33] VITALS: TEMP 101.1
[2024-11-11] MEDS: ACETAMINOPHEN 325 MG TAB PO ONE
[2024-11-11] MEDS: ONDANSETRON 4MG ORAL DISINTEGRATING TAB PO ONE (00:08)
[2024-11-11] MEDS: NS (Normal Saline) 0.9% 1,000 ML IV ONE (01:53)
[2024-11-11] MEDS: ONDANSETRON 4MG 2ML VIAL IV ONE (01:53)
[2024-11-11] MEDS: PIPERACILLIN/TAZOBACTAM SOD 4.5 GM in DEXTROSE 5% (D5W) ADV/MINI-BAG 50 ML IV ONE (01:53)
[2024-11-11] MEDS: METOCLOPRAMIDE INJ 10MG/2ML VIAL IV ONE (02:36)
[2024-11-11 03:19] LABS: KETONE, URINE AUTO RFX 2+ mg/dL (NEGATIVE); LEUKOCYTE ESTERASE UR AUTO RFX NEGATIVE (NEGATIVE); MUCUS, URINE RFX SMALL (NEGATIVE); NITRITE, URINE AUTO RFX NEGATIVE (NEGATIVE); RBC, URINE AUTO RFX 2 /HPF (0-3); SQUAM EPITHELIAL CELL UR AURFX 0 /HPF (0-6); WBC, URINE AUTO RFX 2 /HPF (0-3)
[2024-11-11 03:37] LABS: CANNABINOIDS URINE NEGATIVE (NEGATIVE); METHADONE URINE NEGATIVE (NEGATIVE); OPIATES URINE NEGATIVE (NEGATIVE); PHENCYCLIDINE URINE NEGATIVE (NEGATIVE)
[2024-11-11 03:38] LABS: AMPHETAMINES LEVEL URINE NEGATIVE (NEGATIVE); BARBITURATES URINE NEGATIVE (NEGATIVE); BENZODIAZEPINES URINE NEGATIVE (NEGATIVE); COCAINE METABOLITE URINE NEGATIVE (NEGATIVE)
[2024-11-11] MEDS: levETIRAcetam 250MG TABLET (KEPPRA) PO ONE (03:46)
[2024-11-11] MEDS: ANEXSIA, NORCO 7.5MG/325MG TABLET(HYDROCODONE/APAP) PO ONE (04:52)
[2024-11-11] MEDS ORDERED: REGL10TA6 PO (05:26)
[2024-11-11] MEDS ORDERED: PROM25TA12 PO (05:26)
[2024-11-11 06:00] VITALS: BP 128/62
[2024-11-11 06:34] VITALS: O2SAT 94
== END 2024-11-11 06:46 | disposition home or self-care (01) ==
LOC: M ED 16:07
DX: J09.X9 Influenza due to identified novel influenza A virus with other manifestations (principal); E11.9 Type 2 diabetes mellitus without complications; Z79.4 Long term (current) use of insulin; R56.9 Unspecified convulsions; K21.9 Gastro-esophageal reflux disease without esophagitis; Z79.899 Other long term (current) drug therapy
CPT/HCPCS: 80048; 80076; 80307; 81001; 83690; 85025; 87486; 87581; 87633; 87798; 96365; 96375; 99284; J2405; J2543; J2765

== ENCOUNTER → 2025-02-24 | Outpatient (REF) | payer OTHER ==
[~2025-02-24] MED LIST changes: +PROM25TA12 PO; +TOPI-257 PO; -TOPI100T9 PO
[2025-02-24 14:25] LABS: CHOLESTEROL RISK RATIO 3.37 (<5); HDL CHOLESTEROL 60.8 MG/DL (>40); LDL CHOLESTEROL 127.2 MG/DL (<100); NON-HDL-C 144.2 MG/DL
== END ==
LOC: M LAB REF 11:55
PROVIDERS: ATTEND Nurse Practitioner Family
DX: R79.89 Other specified abnormal findings of blood chemistry (principal)